=== PATIENT | male | born 1955 | race African-American/Black ===

== ENCOUNTER 2022-03-18 12:23 | Emergency (ER) | payer MEDICARE, OTHER ==
[~2022-03-18] VITALS: Ht 180.3 cm; Wt 105.5 kg
[~2022-03-18 12:23] MED LIST: ASCO500C PO; ASPI-482 PO; BRIM5DRO2 OP; CHOL200059 PO; LATA2.5D3 OP; LIPITOR80 MG PO; LISI10TA16 PO; METO-269 PO; OMEG500C3 PO; [UNRECOGNIZED DRUG - CODE] PO
[2022-03-18 12:25] VITALS: BP 187/86
--- NOTE | 2022-03-18 12:49 | PHYS DOC ---
Past Medical History Past Surgical History: Appendectomy, Tonsillectomy Additional Past Surgical Histo: HERNIA REPAIR, CARDIAC STENT General Adult EDM: Chief Complaint: ANKLE PROBLEM HPI: HPI: Patient is a 66 year old male who presents with states he fell down a couple stairs twisting his left ankle yesterday. There is no swelling and bruising. He rates his left medial ankle pain 5 out of 10. States is a dull ache. He has been up and walking on the ankle. Denies any current numbness or tingling, hitting his head, headache, dizziness, neck pain, back pain, focal weakness. History of appendectomy, cardiac stent, tonsillectomy and hernia repair. Review of Systems: Review of Systems: Constitutional: Denies fever or chills. [] Eyes: Denies change in visual acuity. [] HENT: Denies nasal congestion or sore throat. [] Respiratory: Denies cough or shortness of breath. [] Cardiovascular: Denies chest pain or + left lateral swelling edema. [] GI: Denies abdominal pain, nausea, vomiting, bloody stools or diarrhea. [] : Denies dysuria. [] Musculoskeletal: Denies back pain or + left ankle joint pain. + left tib/fib[] Integument: Denies rash.+ Left medial bruising [] Neurologic: Denies headache, focal weakness or sensory changes. [] Endocrine: Denies polyuria or polydipsia. [] Lymphatic: Denies swollen glands. [] Psychiatric: Denies depression or anxiety. [] Heart Score: C/O Chest Pain: No Allergies: Allergies: Allergies Coded Allergies Type Severity Reaction Last Updated Verified No Known Drug Allergies 12/10/13 No Physical Exam: PE: Constitutional: Well developed, well nourished, no acute distress, non-toxic appearance. [] HENT: Normocephalic, atraumatic, bilateral external ears normal, oropharynx moist, no oral exudates, nose normal. [] Eyes: PERRLA, EOMI, conjunctiva normal, no discharge. [] Neck: Normal range of motion, no tenderness, supple, no stridor. [] Cardiovascular:Heart rate regular rhythm, no murmur [] Lungs & Thorax: Bilateral breath sounds clear to auscultation [] Abdomen: Bowel sounds normal, soft, no tenderness, no masses, no pulsatile masses. [] Skin: Warm, dry, no erythema, no rash. Left lateral ankle bruising [] Back: No tenderness, no CVA tenderness. [] Extremities: Left lowermedial tibia tenderness, no cyanosis, no clubbing, ROM intact, left medial ankle 2+ edema. [] Neurologic: Alert and oriented X 3, normal motor function, normal sensory function, no focal deficits noted. [] Psychologic: Affect normal, judgement normal, mood normal. [] Current Patient Data: Vital Signs: Vital Signs Date Time Temp Pulse Resp B/P (MAP) Pulse Ox O2 Delivery O2 Flow Rate FiO2 03/18/22 12:25 98.1 52 18 187/86 (119) 96 Room Air 98.1 EKG: EKG: [] Radiology/Procedures: Radiology/Procedures: [] Course & Med Decision Making: Course & Med Decision Making Pertinent Labs and Imaging studies reviewed. (See chart for details) See HPI. Alert and oriented x4. Ambulatory steady gait. Skin pink warm and dry. Full range of motion of that left ankle. Left medial ankle tenderness with the medial lower leg tenderness with palpation. 2+ swelling. Pedal pulse strong present. Cap refill less than 2 seconds. No numbness or tingling. Full range. Radiology printed out the hard read of the reading and it read as no acute abnormality. Patiently placed in a walking boot. Splint assessment: Neurovascularly intact post splint replacement with good fit. Patient's extremity symptoms have stabilized well they have been evaluated in the department and are appropriate for outpatient follow-up. No evidence of compartment syndrome, neurologic injury, vascular injury, open joint, open fracture, tendon laceration, or foreign body. [] Dragon Disclaimer: Dragon Disclaimer: This electronic medical record was generated, in whole or in part, using a voice recognition dictation system. Departure Departure Impression: Primary Impression: Ankle sprain Qualified Codes: S93.402A - Sprain of unspecified ligament of left ankle, initial encounter Disposition: HOME / SELF CARE / HOMELESS Condition: STABLE Referrals: JEFE CARNEY MD (PCP) GRAZYNA BRODY II, MD Patient Instructions: Ankle Sprain Additional Instructions: Follow-up with your primary care physician or orthopedic in the next 4 to 5 days. Take ibuprofen for your pain. Use ice and elevation. If you begin having increased swelling, focal weakness, severe pain, numbness to the foot, coolness to the extremity return to emergency room. Scripts Ibuprofen (IBUPROFEN) 600 Mg Tablet 600 MG PO PRN Q6HRS PRN for INFLAMMATION, #20 TAB Prov: ALFIE HUNTER APRN 03/18/22 ALFIE HUNTER APRN March 18, 2022 12:49
[2022-03-18] MEDS ORDERED: IBUP-1007 PO (14:56)
--- NOTE | 2022-03-19 07:47 | RAD ---
Exam: XR EXAM OF ANKLE_LEFT 3V, XR LT TIBIA + FIBULA History: Pain, swelling, twisting. Comparison: None. Findings: Osseous mineralization is normal. No acute fracture or dislocaton. The talar dome and ankle mortise a re intact. There are well-corticated ossific densities at the medial and lateral malleolus likely seq uela of old injury. Achilles insertion and plantar calcaneal enthesophytes. Impression: 1. No acute osseous abnormality of the left ankle and tib-fib. Electronically signed by: Tristan Kay MD (03/18/2022 1:23 PM) [id number]
== END 2022-03-18 15:27 | disposition home or self-care (01) ==
LOC: ER 12:23
DX: S93.402A Sprain of unspecified ligament of left ankle, initial encounter (principal); M79.662 Pain in left lower leg; W10.8XXA Fall (on) (from) other stairs and steps, initial encounter; Y93.89 Activity, other specified; Y92.89 Other specified places as the place of occurrence of the external cause; Y99.8 Other external cause status
CPT/HCPCS: 29515; 73590; 73610; 99284